=== PATIENT | male | born 1975 | race Caucasian/White ===

== ENCOUNTER 2024-04-10 10:10 | Outpatient (AMB) | payer OTHER, MEDICAID, SELFPAY ==
[2024-04-10 10:53] VITALS: BP 142/93; PULSE 73; RESP 18; TEMP 36.3; O2SAT 96; BMI 36.9
--- NOTE | 2024-04-10 10:53 | ORTHONT_ITS ---
Vital signs 04/10/24 10:53 Height 1.68 m Height Method Stated Weight 103.873 kg Weight Measurement Method Standing Scale BMI 36.9 BP 142/93 H Blood Pressure Source Automatic Cuff Blood Pressure Location Right Upper Arm Position Sitting Respiration 18 Pulse 73 Pulse Source Monitor Temp 97.3 F Temp Source Temporal Artery Scan Pulse Oximetry (%) 96 Oxygen Delivery Method Room Air Med/Allergies Allergies & Medications Allergies No Known Drug Allergies Allergy (Verified 04/10/24 10:54) Medication Reconciliation meloxicam 7.5 mg tablet 7.5 mg PO QDAY 04/10/24 [History Confirmed 04/10/24] simvastatin 10 mg tablet 10 mg PO QDAY 04/10/24 [History Confirmed 04/10/24] Subjective Visit Visit for: new patient Immunization / Flu Flu Vaccine in the Last 12 Months: No Flu Vaccine Exclusion Criteria: No Exclusion Criteria History of Present Illness Chief complaint: Bilateral knee pain Alberto is a pleasant 48-year-old male with bilateral knee pain and bilateral knee arthritis. He reports the pain has correlated with an increase in weight. He is gained about 10 to 15 pounds. He has not had any anti-inflammatories except for meloxicam. He is had 1 injection in the past which did not help. He reports the pain is still tolerable and hurts at the end of the day when he is working Pain Pain level (0-10): 4 Pain duration: COMES/CRUZ Pain location: anterior Pain quality: sharp, dull and aching Pain timing: increases with activity Associated signs & symptoms: none Ambulatory data Ambulatory device: none Treatments Number of previous injections: 2 Improvement with previous injections: No Improvement with PT: No Improvement with NSAIDS: no Review of Systems Review of Systems: All systems negative unless otherwise noted in HPI. Exam Exam Patient is in no acute distress and is cooperative with the examination today. Breathing is nonlabored. In no respiratory distress. Bilateral extremities were evaluated and demonstrates sensation intact to light touch. Palpable pedal pulses are present. No significant edema is present. Bilateral hips were examined. The patient has no pain with log roll of the hips. Internal rotation to 30 degrees and external rotation to 30 degrees is painless. Negative FADIR. The left knee was examined. The left knee is in [varus] alignment. Range of motion from [0-115] degrees. Knee is stable to varus and valgus as well as AP translation with <5mm. Patient has a [negative] Mc[place]. There is [no] pain with patellofemoral compression and [no] crepitus noted. The knee is [tender] to palpation [medially]. The right knee was also examined. The right knee is in [varus] alignment. Range of motion from [0-120] degrees. Knee is stable to varus and valgus as well as AP translation with <5mm. Patient has a [negative] Mc[place]rays. There is [no] pain with patellofemoral compression and [no] crepitus noted. The knee is [tender] to palpation [medially]. Bilateral knee x-rays from [facility] reviewed by me today. Demonstrates demonstrates mild joint space narrowing. There are minimal osteophytes Assessment and Plan Problem List (1) Degenerative arthritis of knee, bilateral: Status: Acute Plan: Patient is a pleasant 48-year-old female with bilateral knee pain and bilateral knee arthritis. We discussed nonoperative and operative options. Given that his arthritis is mild. We recommend conservative treatment including anti- inflammatories. We can also try physical therapy if needed. Right now, he reports the pain is good and we can see him if the pain worsens management Office Procedures GNS Level of Care Nursing/Assessment Patient Status: Initial/New Patient Nursing Assessment/Reassesment: Medication Reconciliation, Update PMH in EMR and Vital Signs Coordination of Care: Complex Care and Chronic Disease 1-5, Education Complex Pt/Fam, Consent,records obtained, informed consent and Staff clarify orders Special Needs: Language special needs New Patient Charge New Patient Point Assignment: 1089 New Patient Point Charge: STUDENT ADMISSIONS CLERK Level 3 ([id number]) Past Medical History Past Medical History Have you ever been diagnosed with any of the following: Cardiology Problems Hypercholesterolemia: Yes Respiratory Problems Smoking: No Smoking Exposure: No
== END 2024-04-10 11:08 | disposition home or self-care (01) ==
PROVIDERS: PCP Physician Assistant; Referring Provider Physician Assistant; Supervising Provider Orthopaedic Surgery Adult Reconstructive Orthopaedic Surgery; Visit Provider Orthopaedic Surgery Adult Reconstructive Orthopaedic Surgery
DX: M17.0 Bilateral primary osteoarthritis of knee (principal); M25.562 Pain in left knee; M25.561 Pain in right knee
CPT/HCPCS: 99203; G0463